=== PATIENT | male | born 1975 | race Native Hawaiian/Other Pacific Islander ===

== ENCOUNTER 2017-03-08 14:44 | Emergency (ER) | payer OTHER ==
[~2017-03-08] VITALS: Ht 180.3 cm; Wt 95.3 kg
[~2017-03-08 14:44] MED LIST: ALPR0.5T24 PO; BENICAR HCT1 TA1 PO; BENICAR20 MG PO; CYCL10TA35 PO; LEVO0.0218 PO; NORCO1 TAB PO; PANT40TA PO; ROSU10TA PO; RYBIX ODT50 MG OR; TRICOR48 MG PO
[2017-03-08 15:00] VITALS: BP 120/76; TEMP 97.7
[2017-03-08 16:23] LABS: PLATELET COUNT 233 K/uL (142-355)
[2017-03-08 16:33] LABS: POTASSIUM 3.7 mmol/L (3.6-5.2)
== END 2017-03-08 17:40 | disposition home or self-care (01) ==
LOC: ED 14:44
DX: M54.5 Low back pain (principal)
CPT/HCPCS: 36415; 80053; 80307; 80320; 81000; 85027; 99283; G0479

== ENCOUNTER 2019-03-27 12:04 | Emergency (ER) | payer OTHER ==
[~2019-03-27] VITALS: Ht 180.3 cm; Wt 102.1 kg
[2019-03-27 12:20] VITALS: TEMP 99.1
[2019-03-27 13:45] VITALS: BP 152/99
== END 2019-03-27 13:45 | disposition home or self-care (01) ==
LOC: ED 12:04
PROC: 0HQGXZZ Repair Left Hand Skin, External Approach (ICD-10-PCS; principal; 2019-03-27)
DX: S61.211A Laceration without foreign body of left index finger without damage to nail, initial encounter (principal); I10 Essential (primary) hypertension; F17.210 Nicotine dependence, cigarettes, uncomplicated; X58.XXXA Exposure to other specified factors, initial encounter
CPT/HCPCS: 90471; 90715; 99283

== ENCOUNTER 2020-02-15 16:43 | Emergency (ER) | payer OTHER ==
[~2020-02-15] VITALS: Ht 180.3 cm; Wt 102.1 kg
[2020-02-15 17:05] VITALS: BP 189/128; TEMP 98
== END 2020-02-15 19:00 | disposition home or self-care (01) ==
LOC: ED 16:43
DX: S61.210A Laceration without foreign body of right index finger without damage to nail, initial encounter (principal); W29.8XXA Contact with other powered hand tools and household machinery, initial encounter; Y92.89 Other specified places as the place of occurrence of the external cause
CPT/HCPCS: 99281

== ENCOUNTER 2020-05-25 01:31 | Emergency (ER) | payer OTHER ==
[~2020-05-25] VITALS: Ht 180.3 cm; Wt 97.5 kg
[2020-05-25 03:00] VITALS: BP 168/104; TEMP 98.6
== END 2020-05-25 03:20 | disposition home or self-care (01) ==
LOC: ED 01:31
DX: M54.5 Low back pain (principal); G89.29 Other chronic pain; M62.830 Muscle spasm of back; X50.9XXA Other and unspecified overexertion or strenuous movements or postures, initial encounter; Y92.89 Other specified places as the place of occurrence of the external cause
CPT/HCPCS: 96372; 99283; J1885; J2360; J2930

== ENCOUNTER 2022-03-04 12:27 | Emergency (ER) | payer OTHER ==
[~2022-03-04] VITALS: Ht 180.3 cm; Wt 101.6 kg
[2022-03-04 12:45] VITALS: TEMP 98.9
[2022-03-04 13:41] LABS: PLATELET COUNT 191 K/uL (142-355)
[2022-03-04 13:55] LABS: PARTIAL THROMBOPLASTIN TIME 31.8 SECONDS (24.5-33.6)
[2022-03-04 13:57] LABS: POTASSIUM 3.2 mmol/L (3.6-5.2)
[2022-03-04 17:50] VITALS: BP 190/100
== END 2022-03-04 19:45 | disposition short-term general hospital (02) ==
LOC: ED 12:27
PROVIDERS: Emergency Medicine
DX: K75.9 Inflammatory liver disease, unspecified (principal)
CPT/HCPCS: 80053; 80074; 80307; 81002; 83690; 84484; 85027; 85610; 85730; 93005; 99283; J0360